=== PATIENT | female | born 1990 | race American Indian/Alaskan Native ===

== ENCOUNTER 2017-03-30 14:48 | Emergency (ER) | payer SELFPAY ==
[2017-03-30 15:21] VITALS: BP 111/71
[2017-03-30] MEDS ORDERED: FUL-GLO OP ONE (23:39)
[2017-03-30] MEDS ORDERED: TETRACAINE 0.5% OU ONE (23:41)
--- NOTE | 2017-03-31 00:08 | Emergency Department Report ---
[facility] Chief Complaint: Eye Problems Stated Complaint: R EYE PAIN Time Seen by Provider: 03/30/17 22:33 Duration: 3 Days Side: Right Severity: moderate Symptoms: Yes Eye Itching, Yes Eye Redness, Yes Mucous Drainage, Yes Blurred Vision, Yes Contact Lens Use (Nonprescriptive contacts), No Eye Pain, No Purulent Drainage, No Preceding URI, No H/O Allergic Rhinitis, No Trauma, No Fever, No Headache Other History: This is a 26 y.o. female presents with right eye irritation and redness for 3 days. Admits to sleeping in non-prescription contacts 2 days ago. 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 She would also like to be checked for STD. Denies recent exposure but having mild discharge without odor. Denies odor, abdominal, and back pain. ED Review of Systems ROS: Stated complaint: R EYE PAIN Other details as noted in HPI Constitutional: denies: chills, fever Eyes: eye pain, eye discharge, vision change (blurry) ENT: denies: ear pain, throat pain Respiratory: denies: cough, shortness of breath, wheezing Cardiovascular: denies: chest pain, palpitations Gastrointestinal: denies: abdominal pain, nausea, diarrhea Genitourinary: discharge (white). 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 No distress. Alert and acting appropriately. Eye Exam: Right Injection, Right Mucous Discharge, Right Fluorescein Uptake, Both EOMI, Neither Chemosis, Neither Abnormal Pupil, Neither Eye Foreign Body, Neither Lid Foreign Body, Neither Purulent Discharge, Neither Fluorescein Uptake (slit lamp), Neither Cell/Flare (slit lamp), Neither Corneal Edema, Neither Photophobia HEENT: No Nasal Congestion, No Pharyngeal Erythema Remainder of HEENT: Normal Lungs: Yes Clear Lung Sounds, Yes Good Air Exchange, No Wheezes, No Stridor, No Cough, No Nasal Flaring, No Retractions, No Use of Accessory Muscles ED Course Vital Signs 03/30/17 15:16 Temperature 98.2 F Pulse Rate 85 Respiratory 16 Rate Blood Pressure 111/71 O2 Sat by Pulse 100 Oximetry ED Medical Decision Making - Medical Decision Making This is a 26 y.o. female presents with right eye irritation/itching and redness for 3 days. Admits to sleeping in nonprescription contacts. 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 States vision is blurry without glasses which is normal but at times is blurry with glasses on right eye. Denies pain. Request STD testing. Denies recent exposure, odor, abdominal pain, and low back pain. Fluroescein uptake normal Conjunctivitis: start cipro gtts and f/u with ophthalmology in 24-48 hours. STD testing: Instructed to F/U with the Health Department or PCP for testing. Critical care attestation.: If time is entered above; I have spent that time in minutes in the direct care of this critically ill patient, excluding procedure time. ED Disposition Clinical Impression: Conjunctivitis Qualifiers: Conjunctivitis type: acute Acute conjunctivitis type: bacterial Laterality: right Qualified Code(s): H10.31 - Unspecified acute conjunctivitis, right eye Disposition: - TO HOME OR SELFCARE Is pt being admited?: No Does the pt Need Aspirin: No Condition: Stable Instructions: Conjunctivitis (ED) Additional Instructions: Wash hands frequently. Use warm compress for symptom relief. Complete medication as prescribed. Follow up with Ophthalmology in 24-48 hours. Prescriptions: Ciprofloxacin 0.3% (Nf) [Ciprofloxacin OPTH] 2.5 ml OP 4XD 5 Days #1 bottle Referrals: [facility] Depart [Outside] - 3-5 Days Eye, S [Other] - 3-5 Days Forms: Work/School Release Form(ED) Time of Disposition: 00:20 Print Language: VIET[place]
== END 2017-03-31 00:28 | disposition home or self-care (01) ==
LOC: ED 14:48
DX: H10.31 Unspecified acute conjunctivitis, right eye (principal); B96.89 Other specified bacterial agents as the cause of diseases classified elsewhere; Z90.710 Acquired absence of both cervix and uterus; Z87.891 Personal history of nicotine dependence
CPT/HCPCS: 99283